=== PATIENT | female | born 1970 ===

== ENCOUNTER → 2016-12-16 | Outpatient (REF) | payer BC | LOC: M LAB REF 16:36 | PROVIDERS: ATTEND Internal Medicine | DX: E89.0 Postprocedural hypothyroidism (principal) ==

== ENCOUNTER → 2017-06-02 | Outpatient (REF) | payer BC | LOC: M LAB REF 17:13 | PROVIDERS: ATTEND Internal Medicine | DX: E89.0 Postprocedural hypothyroidism (principal); Z85.850 Personal history of malignant neoplasm of thyroid ==